=== PATIENT | female | born 1970 | race Caucasian/White ===

== ENCOUNTER 2017-02-27 20:21 | Emergency (ER) | payer SELFPAY ==
[~2017-02-27] VITALS: Ht 157.5 cm; Wt 93.0 kg
[~2017-02-27 20:21] MED LIST: CIPR500T4 PO; LORTA5 PO; NORC7.5T PO; PROM25R PR
[2017-02-27 20:23] VITALS: BP 138/84; PULSE 93; RESP 16; TEMP 98.8; O2SAT 98
[2017-02-27] MEDS ORDERED: TYLE325T PO (20:35)
[2017-02-27] MEDS ORDERED: ALLE12TA2 PO (20:35)
[2017-02-27] MEDS ORDERED: SODIUM CHLOR 0.9% 1000 ML INJ 1,000 ML IV SCH (21:41)
[2017-02-27] MEDS ORDERED: SODIUM CHLORIDE 0.9% FLUSH 10 ML FLUSH IV FLUSH PRN (21:45)
[2017-02-27] MEDS ORDERED: METOCLOPRAMIDE HCL 10 MG/2 ML VIAL IV PUSH ONE (21:45)
[2017-02-27] MEDS ORDERED: KETOROLAC TROMETHAMINE 30 MG/ML (IVP) VIAL IV PUSH ONE (21:45)
--- NOTE | 2017-02-27 21:48 | PD ---
HPI Chief Complaint: Cold / Flu Symptoms Time Seen by Provider: 21:35 Travel History International Travel<30 days: No Contact w/Intl Traveler<30days: No Traveled to known affect area: No History of Present Illness HPI 46-year-old female with history of migraine headaches, here for evaluation of 2 weeks of head pain and sinus congestion. Symptoms are gradual in onset. She currently rates the pain as 9 out of 10, starts in the front of her head and in her maxillary sinus region and radiates to the back of her head. She denies fevers or chills. No nausea or vomiting. No neck pain or stiffness. No trauma. No paresthesias or motor deficits. No visual disturbances. She has been taking Tylenol and Nancy which seemed to alleviate her symptoms. She felt as though she had been taking his medications for 2 long, decided to not take them for the last couple of days, and her symptoms subsequently worsened. PFSH Past Medical History Blood Disorders: No Cancer: No Cardiovascular Problems: No Diminished Hearing: No Endocrine: No Gastrointestinal Disorders: Yes (GALLBLADDER STONES) Genitourinary: No Immune Disorder: No Musculoskeletal: No Neurologic: No Reproductive: No Respiratory: No Tetanus Vaccination: > 5 Years Influenza Vaccination: No ?: Not Menopausal: Yes : 2 Para: 2 Tubal Ligation: Yes Past Surgical History Cholecystectomy: Yes Pacemaker: No Other Surgery: Yes (Tubal Ligation) Social History Alcohol Use: Yes (SOCIALLY) Tobacco Use: No Substance Use: No Allergies-Medications (Allergen,Severity, Reaction): Coded Allergies: No Known Allergies (Unverified , 01/27/13) Reported Meds & Prescriptions Reported Meds & Active Scripts Active Reported Tylenol (Acetaminophen) 325 Mg Tab 650 Mg PO Q4H PRN Nancy-D 12 Hour Allergy (Fexofenadine-Pseudoephedrine ER 12 HR) 60-120 Mg Matilde 1 Tab PO BID Review of Systems Except as stated in HPI: all other systems reviewed are Neg Physical Exam Narrative GENERAL: Well-developed, well-nourished, awake, alert, comfortable, no apparent distress. SKIN: Focused skin assessment warm/dry. No rash. HEAD: Atraumatic. Normocephalic. EYES: Pupils equal, round, 3 mm, reactive to light. EOMI. No scleral icterus. No injection or drainage. ENT: No nasal bleeding or discharge. Mucous membranes pink and moist. NECK: Trachea midline. No JVD. No nuchal rigidity. CARDIOVASCULAR: Regular rate and rhythm. RESPIRATORY: No accessory muscle use. Clear to auscultation. Breath sounds equal bilaterally. GASTROINTESTINAL: Abdomen soft, non-tender, nondistended. MUSCULOSKELETAL: No obvious deformities. No clubbing. No cyanosis. No edema. NEUROLOGICAL: Awake and alert. No obvious cranial nerve deficits. Motor grossly within normal limits. Normal speech. PSYCHIATRIC: Appropriate mood and affect; insight and judgment normal. Data Data Last Documented VS Vital Signs Date Time Temp Pulse Resp B/P (MAP) Pulse Ox O2 Delivery O2 Flow Rate FiO2 02/27/17 20:23 98.8 93 16 138/84 (102) 98 Room Air Orders Orders Complete Blood Count With Diff (02/27/17 21:41) Comprehensive Metabolic Panel (02/27/17 21:41) Prothrombin Time / Inr (Pt) (02/27/17 21:41) Act Partial Throm Time (Ptt) (02/27/17 21:41) Iv Access Insert/Monitor (02/27/17 21:41) Ecg Monitoring (02/27/17 21:41) Oximetry (02/27/17 21:41) Sodium Chlor 0.9% 1000 Ml Inj (Ns 1000 M (02/27/17 21:41) Sodium Chloride 0.9% Flush (Ns Flush) (02/27/17 21:45) Ct Brain W/O Iv Contrast(Rout) (02/27/17 ) Metoclopramide Inj (Reglan Inj) (02/27/17 21:45) Ketorolac Inj (Toradol Inj) (02/27/17 21:45) Influenzae A/B Antigen (02/27/17 21:46) Ampicillin-Sulbactam Inj (Unasyn Inj) (02/27/17 23:15) Labs Laboratory Tests Test 02/27/17 22:10 White Blood Count 9.9 TH/MM3 Red Blood Count 4.34 MIL/MM3 Hemoglobin 13.2 GM/DL Hematocrit 39.1 % Mean Corpuscular Volume 90.2 FL Mean Corpuscular Hemoglobin 30.3 PG Mean Corpuscular Hemoglobin Concent 33.6 % Red Cell Distribution Width 12.8 % Platelet Count 335 TH/MM3 Mean Platelet Volume 7.5 FL Neutrophils (%) (Auto) 74.5 % Lymphocytes (%) (Auto) 14.1 % Monocytes (%) (Auto) 7.9 % Eosinophils (%) (Auto) 2.6 % Basophils (%) (Auto) 0.9 % Neutrophils # (Auto) 7.4 TH/MM3 Lymphocytes # (Auto) 1.4 TH/MM3 Monocytes # (Auto) 0.8 TH/MM3 Eosinophils # (Auto) 0.3 TH/MM3 Basophils # (Auto) 0.1 TH/MM3 CBC Comment DIFF FINAL Differential Comment Prothrombin Time 9.7 SEC Prothromb Time International Ratio 1.0 RATIO Activated Partial Thromboplast Time 27.9 SEC MDM Medical Decision Making Medical Screen Exam Complete: Yes Emergency Medical Condition: Yes Differential Diagnosis Sinusitis, tension headache, cluster headache, migraine headache, SAH/meningitis /encephalitis less likely Narrative Course Initial vital signs show heart rate 93, blood pressure 138/84, pulse ox 98% on room air, oral temp 98.8F. CBC is unremarkable. CMP Influenza is negative. CT head: CONCLUSION: Severe left-sided sinusitis. No acute intracranial findings. Patient was made aware of all findings. She was given a dose of IV Reglan and IV Toradol and on reassessment states that she feels much better. She will be given a dose of IV Unasyn and discharged home with a prescription for Augmentin. She was advised to follow-up with a primary care physician this week. I will also give her the name of the ENT physician on-call to follow-up with this week. She was informed on when to return to the emergency department. She verbalizes understanding and agreement with plan. Diagnosis Primary Impression: Sinusitis Qualified Codes: J01.90 - Acute sinusitis, unspecified Referrals: Alexi Mix MD 3 days ENT [facility] 3 days Primary Care Physician 3 days Additional Instructions: Follow-up with a primary care physician this week. Follow-up with ENT Dr. Mix or an ENT of your choice this week. Return to the emergency department for worsening symptoms or any other concerns. Scripts Amoxicillin-Clavulanate (Augmentin) 875-125 Mg Tab 1 TAB PO BID for Infection for 10 Days, #20 TAB 0 Refills Prov: Alber Arzate MD 02/27/17 Disposition: 01 DISCHARGE HOME Condition: Stable Alber Arzate MD Feb 27, 2017 21:48
[2017-02-27 22:49] LABS: AUTOMATED NEUTROPHIL # 7.4 TH/MM3 (1.8-7.7); BASOPHIL # 0.1 TH/MM3 (0-0.2); BASOPHIL % 0.9 % (0.0-2.0); EOSINOPHIL # 0.3 TH/MM3 (0-0.4); EOSINOPHIL % 2.6 % (0.0-4.0); HEMATOCRIT 39.1 % (35.0-46.0); HEMOGLOBIN 13.2 GM/DL (11.6-15.3); LYMPH % 14.1 % (9.0-44.0); LYMPHOCYTE # 1.4 TH/MM3 (1.0-4.8); MEAN CELL VOLUME 90.2 FL (80.0-100.0); MEAN CORPUSCULAR HEMOGLOBIN 30.3 PG (27.0-34.0); MEAN CORPUSCULAR HGB CONC 33.6 % (32.0-36.0); MEAN PLATELET VOLUME 7.5 FL (7.0-11.0); MONO % 7.9 % (0.0-8.0); MONOCYTE # 0.8 TH/MM3 (0-0.9); NEUT % 74.5 % (16.0-70.0); PLATELET COUNT 335 TH/MM3 (150-450); RED BLOOD COUNT 4.34 MIL/MM3 (4.00-5.30); RED CELL DISTRIBUTION WIDTH 12.8 % (11.6-17.2); WHITE BLOOD COUNT 9.9 TH/MM3 (4.0-11.0)
--- NOTE | 2017-02-27 22:50 | RADRPT ---
EXAM DATE/TIME: 02/27/2017 22:35 [facility] COMPARISON: No previous studies available for comparison. INDICATIONS : Headaches with sinus pressure past 2 weeks. RADIATION DOSE: 32.86 CTDIvol (mGy) MEDICAL HISTORY : None SURGICAL HISTORY : Cholecystectomy. Tubal ligation. ENCOUNTER: Initial ACUITY: 2 weeks PAIN SCALE: 9/10 LOCATION: Bilateral cranial TECHNIQUE: Multiple contiguous axial images were obtained of the head. Using automated exposure control and adj ustment of the mA and/or kV according to patient size, radiation dose was kept as low as reasonably a chievable to obtain optimal diagnostic quality images. DICOM format image data is available electro nically for review and comparison. FINDINGS: CEREBRUM: The ventricles are normal for age. No evidence of midline shift, mass lesion, hemorrhage or acute in farction. No extra-axial fluid collections are seen. POSTERIOR FOSSA: The cerebellum and brainstem are intact. The 4th ventricle is midline. The cerebellopontine angle i s unremarkable. EXTRACRANIAL: Near-complete opacification of the left maxillary sinus and left ethmoid sinus. Large air-fluid level s in the sphenoid sinuses. Near-complete opacification of the left frontal sinus. SKULL: The calvaria is intact. No evidence of skull fracture. CONCLUSION: Severe left-sided sinusitis. No acute intracranial findings. Panda Travis MD on February 27, 2017 at 22:47 Board Certified Radiologist. This report was verified electronically.
[2017-02-27 22:51] LABS: PROTHROMBIN TIME - PATIENT 9.7 SEC (9.8-11.6)
[2017-02-27] MEDS ORDERED: AUGM875T3 PO (23:09)
[2017-02-27 23:15] LABS: ALKALINE PHOSPHATASE 139 U/L (45-117); TOTAL BILIRUBIN ADULT 0.4 MG/DL (0.2-1.0); TOTAL PROTEIN 7.8 GM/DL (6.4-8.2)
[2017-02-27] MEDS ORDERED: AMPICILLIN-SULBACTAM INJ 3 GM in SODIUM CHLORIDE 0.9% INJ 100 ML IV ONE (23:15)
[2017-02-27 23:26] LABS: ALBUMIN 3.4 GM/DL (3.4-5.0); ALT (GPT) 25 U/L (10-53); AST (GOT) 23 U/L (15-37); BICARBONATE 29.1 MEQ/L (21.0-32.0); BLOOD UREA NITROGEN 10 MG/DL (7-18); CALCIUM 8.9 MG/DL (8.5-10.1); CHLORIDE 106 MEQ/L (98-107); CREATININE 0.83 MG/DL (0.50-1.00); GLOMERULAR FILTRATION RATE 73 ML/MIN (>89); GLUCOSE,RANDOM 111 MG/DL (74-106); SODIUM (NA) 142 MEQ/L (136-145)
== END 2017-02-28 00:32 | disposition home or self-care (01) ==
LOC: NEPD 20:21
DX: J32.9 Chronic sinusitis, unspecified (principal)
CPT/HCPCS: 70450; 80053; 85025; 85610; 85730; 87804; 96361; 96365; 96375; 99285; J0295; J1885; J2765; J7030